=== PATIENT | female | born 1965 | race Caucasian/White ===

== ENCOUNTER → 2016-07-07 | Outpatient (CLI) | payer OTHER ==
--- NOTE | 2016-07-08 09:58 | REPMRS ---
Patient History The patient states she has not had a clinical breast exam in over a year. Patient is nulliparous. Family history of breast cancer in maternal aunt at age 60. Digital Mammo Screening Bilat: July 07, 2016 - Exam #: [id number] Bilateral CC and MLO view(s) were taken. Technologist: Nicolle Kinney, Technologist FINDINGS: There are scattered fibroglandular densities. There has been no change in the appearance of the mammogram from the prior studies. There is a mild amount of residual fibroglandular tissue which is fairly symmetric. There is no interval development of dominant mass, architectural distortion, or clustered microcalcification suggestive of malignancy. ASSESSMENT: BI-RADS/ACR category 1 mammogram. Negative. Recommendation Routine screening mammogram in 1 year (for women over age 40). This mammogram was interpreted with the aid of an FDA-approved computer-aided dectection system. Electronically Signed By: Rufus Rivas MD 07/08/16 0958
== END ==
LOC: M RAD 18:04
PROVIDERS: ATTEND Physician Assistant
DX: Z12.31 Encounter for screening mammogram for malignant neoplasm of breast (principal)

== ENCOUNTER → 2016-07-30 | Outpatient (CLI) | payer OTHER ==
--- NOTE | 2016-07-30 12:07 | REP ---
MRI BRAIN WITHOUT AND WITH CONTRAST: 07/30/2016. Comparison: 11/17/2006 Clinical history: Right-sided facial pain. Evaluate for demyelinating lesion. Trigeminal neuralgia. Technique: Sagittal FLAIR, coronal T1, axial T1, T2, fat suppressed T2, FLAIR, diffusion weighted images and ADC mapping sequences. After infusion of 16 ml's of ProHance, axial T1 with coronal and sagittal fat suppressed T1 sequences were provided. Findings: The lateral ventricles were symmetric and without dilatation or displacement from the midline. Basal ganglia symmetric and grossly normal. Third and fourth ventricles were unremarkable as well. There is a small focus of subcortical posterior frontal anterior parietal white matter which is hyperintense on T2 and FLAIR sequence. The periventricular, deep white matter and subcortical regions are otherwise without hyperintense signal foci in either hemisphere. Cortical stripe was preserved. There is no vascular territory infarct, hemorrhage, mass or mass effect. Rivas white junction differentiation was maintained. The diffusion weighted images and ADC mapping sequences show no evidence of acute ischemia. Brainstem shows no signal abnormality on the T2 sequence. There is one small focus of hyperintense signal on FLAIR images of the medulla to the left of midline which might be artifact. Contrast images show no evidence of enhancement of the brainstem nor of the subcortical white matter in the posterior right frontal anterior parietal region where a hyperintense T2 and FLAIR focus is seen. Cerebellum shows no atrophy or mass. No posterior fossa bleed. Vertebrobasilar arteries and [place] and vasculature at the base of the brain was grossly intact. After contrast administration, there was no abnormal meningeal enhancement, vascular lesion, gyriform enhancement, enhancing mass or other significant finding. Surrounding soft tissues of face and scalp were grossly intact as well. Mastoids symmetric and normal. Seventh/eighth cranial nerve complexes are unremarkable. The corpus callosum, optic chiasm and pituitary were unremarkable. No white matter tract abnormalities in the corpus callosum. There is no cerebellar tonsillar ectopia with an ample subarachnoid space about the craniocervical junction. Impression: 1. There is one small punctate hyperintense T2 and FLAIR focus in the subcortical white matter left posterior frontal anterior parietal region without evidence of enhancement. 2. There is a vague suggestion of hyperintense FLAIR signal in the left medulla just below the scar without visualization on T2 which may reflect an artifact. There is no enhancement there on the contrast study. 3. No vascular lesion, enhancing mass, abnormal meningeal enhancement, gyriform enhancement or vascular malformation noted. Nothing acute. Signed by Lazaro Jean MD 07/30/2016 02:17 P
== END ==
LOC: M RAD 09:42
PROVIDERS: ATTEND Physician Assistant
DX: G50.0 Trigeminal neuralgia (principal)
CPT/HCPCS: 70553; A9576

== ENCOUNTER → 2016-12-19 | Outpatient (REF) | payer OTHER ==
[2016-12-19 11:46] LABS: BASO # 0.1 10^3/uL (0.0-0.2); BASO % 1.1 % (0.0-1.0); EOS # 0.3 10^3/uL (0.0-0.50); EOS % 4.7 % (0.0-3.0); IMMATURE GRANULOCYTE % 0.2 % (0-0); LYMPH # 1.6 10^3/uL (1.5-4.5); LYMPH % 29.5 % (24.0-44.0); MEAN CORPUSCULAR HEMOGLOBIN 28.6 pg (27.0-33.0); MEAN CORPUSCULAR HGB CONC 35.1 g/dl (32.0-36.5); MEAN CORPUSCULAR VOLUME 81.6 fl (80.0-96.0); MONO # 0.4 10^3/uL (0.0-0.8); MONO % 6.9 % (0.0-5.0); NEUTROPHILS # 3.2 10^3/uL (1.8-7.7); NEUTROPHILS % 57.6 % (36.0-66.0); PLATELET COUNT, AUTOMATED 278 10^3/uL (150-450); RED CELL DISTRIBUTION WIDTH 12.7 % (11.5-14.5); WHITE BLOOD COUNT 5.5 10^3/uL (4.0-10.0)
[2016-12-19 11:48] LABS: ADD MANUAL DIFFER NO; DIFF SLIDE NUMBER 133
[2016-12-19 12:03] LABS: ALBUMIN 4.3 GM/DL (3.2-5.2); ALBUMIN/GLOBULIN RATIO 1.26 (1.00-1.93); ALKALINE PHOSPHATASE 68 U/L (45-117); ALT/SGPT 22 U/L (12-78); ANION GAP 7 MEQ/L (8-16); AST/SGOT 16 U/L (15-37); BILIRUBIN,TOTAL 0.6 MG/DL (0.2-1.0); BLOOD UREA NITROGEN 20 MG/DL (7-18); CALCIUM LEVEL 9.5 MG/DL (8.5-10.1); CARBON DIOXIDE LEVEL 35 MEQ/L (21-32); CHLORIDE LEVEL 96 MEQ/L (98-107); CREATININE FOR GFR 1.03 MG/DL (0.55-1.02); FREE T4 1.39 NG/DL (0.76-1.46); GLOMERULAR FILTRATION RATE > 60.0 (>58); GLUCOSE, FASTING 99 MG/DL (70-105); POTASSIUM SERUM 3.1 MEQ/L (3.5-5.1); SODIUM LEVEL 138 MEQ/L (136-145); TOTAL PROTEIN 7.7 GM/DL (6.4-8.2)
[2016-12-21 10:17] LABS: FOLATE 15.5 NG/ML; VITAMIN B12 LEVEL 719 PG/ML
[2016-12-23 00:20] LABS: Lyme Disease IgG/IgM Antibodie <0.91 ISR (0.00-0.90); Lyme Disease IgM Ab Quantitati <0.80 index (0.00-0.79)
== END ==
LOC: M LAB REF 11:18 → M LABWUC 11:18
PROVIDERS: ATTEND Physician Assistant
DX: R53.83 Other fatigue (principal)

== ENCOUNTER → 2017-01-06 | Outpatient (CLI) | payer OTHER ==
[2017-01-12 00:07] LABS: HSV TYPE I IgM AB <1:10 titer (<1:10); HSV TYPE II IgM ABY <1:10 titer (<1:10)
== END ==
LOC: M WUC 16:38
PROVIDERS: ATTEND Family Medicine
DX: H81.01 Meniere's disease, right ear (principal); E55.9 Vitamin D deficiency, unspecified

== ENCOUNTER 2019-05-25 10:55 | Day surgery (SDC) | payer OTHER ==
[~2019-05-25] VITALS: Ht 157.5 cm; Wt 80.3 kg
[~2019-05-25 10:55] MED LIST: IBUP-1114 PO; MULTCAP PO; NS 1,000 ML IV ONE; PROAAER10 INH; VITA30004 PO
[2019-05-25] MEDS ORDERED: LIDOCAINE 2% INJ 100 MG/5 ML SDV (FOR ANES.) As Ordered ONE (11:59)
[2019-05-25] MEDS ORDERED: fentaNYL 100 MCG/2 ML INJECTION (J3010) As Ordered ONE (12:16)
[2019-05-25] MEDS ORDERED: propofoL 500 MG/50 ML VIAL As Ordered ONE (12:16)
--- NOTE | 2019-05-25 13:19 | ROOR ---
Patient Name: Carleen Alexander Procedure Date: 05/25/2019 1:01 PM Date of : 1965 Age: 53 Room: [facility] Gender: Female Note Status: Finalized Procedure: Upper GI endoscopy Indications: Heartburn, Suspected esophageal reflux Providers: Sam Negrete Jr, MD Referring MD: Maryan ALONZO DO Requesting Provider: Medicines: Propofol per Anesthesia Complications: No immediate complications. Procedure: Pre-Anesthesia Assessment: - Prior to the procedure, a History and Physical was performed, and patient medications and allergies were reviewed. The patient is competent. The risks and benefits of the procedure and the sedation options and risks were discussed with the patient. All questions were answered and informed consent was obtained. Patient identification and proposed procedure were verified by the physician and the nurse in the pre-procedure area and in the procedure room. Mental Status Examination: alert and oriented. Airway Examination: normal oropharyngeal airway and neck mobility. Respiratory Examination: clear to auscultation. CV Examination: normal. ASA Grade Assessment: II - A patient with mild systemic disease. After reviewing the risks and benefits, the patient was deemed in satisfactory condition to undergo the procedure. The anesthesia plan was to use moderate sedation / analgesia (conscious sedation). Immediately prior to administration of medications, the patient was re-assessed for adequacy to receive sedatives. The heart rate, respiratory rate, oxygen saturations, blood pressure, adequacy of pulmonary ventilation, and response to care were monitored throughout the procedure. The physical status of the patient was re-assessed after the procedure. The Endoscope was introduced through the mouth, and advanced to the second part of duodenum. The upper GI endoscopy was accomplished without difficulty. The patient tolerated the procedure well. Findings: The upper third of the esophagus, middle third of the esophagus and lower third of the esophagus were normal. The cardia, gastric fundus and gastric body were normal. Localized moderate inflammation characterized by congestion (edema), erythema and linear erosions was found in the prepyloric region of the stomach. The duodenal bulb, first portion of the duodenum and second portion of the duodenum were normal. Impression: - Normal upper third of esophagus, middle third of esophagus and lower third of esophagus. - Normal cardia, gastric fundus and gastric body. - Gastritis. - Normal duodenal bulb, first portion of the duodenum and second portion of the duodenum. - No specimens collected. Recommendation: - Discharge patient to home (ambulatory). - Return to my office in 1 week. Sam Negrete MD Sam Negrete Jr, MD 05/25/2019 1:19:06 PM Electronically signed by Sam Negrete Jr, MD Number of Addenda: 0 Note Initiated On: 05/25/2019 1:01 PM Estimated Blood Loss: Estimated blood loss: none.
--- NOTE | 2019-05-25 13:32 | ROOR ---
Patient Name: Carleen Alexander Procedure Date: 05/25/2019 1:02 PM Date of : 1965 Age: 53 Room: [facility] Gender: Female Note Status: Finalized Procedure: Colonoscopy Indications: Screening for colorectal malignant neoplasm Providers: Sam Negrete Jr, MD Referring MD: Maryan ALONZO DO Requesting Provider: Medicines: Propofol per Anesthesia Complications: No immediate complications. Procedure: Pre-Anesthesia Assessment: - Prior to the procedure, a History and Physical was performed, and patient medications and allergies were reviewed. The patient is competent. The risks and benefits of the procedure and the sedation options and risks were discussed with the patient. All questions were answered and informed consent was obtained. Patient identification and proposed procedure were verified by the physician and the nurse in the pre-procedure area and in the procedure room. Mental Status Examination: alert and oriented. Airway Examination: normal oropharyngeal airway and neck mobility. Respiratory Examination: clear to auscultation. CV Examination: normal. ASA Grade Assessment: II - A patient with mild systemic disease. After reviewing the risks and benefits, the patient was deemed in satisfactory condition to undergo the procedure. The anesthesia plan was to use moderate sedation / analgesia (conscious sedation). Immediately prior to administration of medications, the patient was re-assessed for adequacy to receive sedatives. The heart rate, respiratory rate, oxygen saturations, blood pressure, adequacy of pulmonary ventilation, and response to care were monitored throughout the procedure. The physical status of the patient was re-assessed after the procedure. The Colonoscope was introduced through the anus and advanced to the cecum, identified by appendiceal orifice and ileocecal valve. The colonoscopy was performed without difficulty. The patient tolerated the procedure well. The quality of the bowel preparation was adequate. Findings: The rectum, recto-sigmoid colon, sigmoid colon, descending colon, transverse colon, ascending colon, cecum, appendiceal orifice and ileocecal valve appeared normal. Non-bleeding external and internal hemorrhoids were found during retroflexion, during perianal exam and during endoscopy. The hemorrhoids were moderate and Grade II (internal hemorrhoids that prolapse but reduce spontaneously). Impression: - The rectum, recto-sigmoid colon, sigmoid colon, descending colon, transverse colon, ascending colon, cecum, appendiceal orifice and ileocecal valve are normal. - Non-bleeding external and internal hemorrhoids. - No specimens collected. Recommendation: - Discharge patient to home (ambulatory). - Repeat colonoscopy in 10 years for screening purposes. Sam Negrete MD Sam Negrete Jr, MD 05/25/2019 1:32:05 PM Electronically signed by Sam Negrete Jr, MD Number of Addenda: 0 Note Initiated On: 05/25/2019 1:02 PM Estimated Blood Loss: Estimated blood loss: none.
[2019-05-25 14:07] VITALS: BP 113/62
== END 2019-05-25 14:09 | disposition home or self-care (01) ==
LOC: M OPP 10:55
PROVIDERS: ATTEND Surgery
DX: Z12.11 Encounter for screening for malignant neoplasm of colon (principal); K64.1 Second degree hemorrhoids; K29.70 Gastritis, unspecified, without bleeding; K21.9 Gastro-esophageal reflux disease without esophagitis; R12 Heartburn; Z79.899 Other long term (current) drug therapy
CPT/HCPCS: 43239; 45378; 88305; J3010

== ENCOUNTER → 2019-07-17 | Outpatient (CLI) | payer OTHER ==
[~2019-07-17] MED LIST changes: -NS 1,000 ML IV ONE
[2019-07-17 19:26] LABS: BASO % 0.6 % (0.0-1.0); EOS # 0.1 10^3/uL (0.0-0.5); EOS % 1.3 % (0.0-3.0); HEMATOCRIT 38.4 % (36.0-47.0); HEMOGLOBIN 12.6 g/dl (12.0-15.5); LYMPH # 1.8 10^3/uL (1.5-5.0); LYMPH % 32.9 % (24.0-44.0); MEAN CORPUSCULAR HEMOGLOBIN 28.8 pg (27.0-33.0); MEAN CORPUSCULAR HGB CONC 32.8 g/dl (32.0-36.5); MEAN CORPUSCULAR VOLUME 87.9 fl (80.0-96.0); MONO # 0.3 10^3/uL (0.0-0.8); MONO % 6.3 % (0.0-5.0); NEUTROPHILS # 3.2 10^3/uL (1.5-8.5); NEUTROPHILS % 58.7 % (36.0-66.0); PLATELET COUNT, AUTOMATED 223 10^3/uL (150-450); RED BLOOD COUNT 4.37 10^6/uL (4.00-5.40); WHITE BLOOD COUNT 5.4 10^3/uL (4.0-10.0)
[2019-07-17 19:46] LABS: ALBUMIN 4.4 GM/DL (3.2-5.2); ALT/SGPT 64 U/L (12-78); BILIRUBIN,TOTAL 0.5 MG/DL (0.2-1.0); BLOOD UREA NITROGEN 13 MG/DL (7-18); CALCIUM LEVEL 9.3 MG/DL (8.5-10.1); CARBON DIOXIDE LEVEL 29 MEQ/L (21-32); CHLORIDE LEVEL 105 MEQ/L (98-107); CHOLESTEROL LEVEL 235 MG/DL (<200); CHOLESTEROL RISK RATIO 4.895 (<5); CREATININE FOR GFR 0.67 MG/DL (0.55-1.30); GLOMERULAR FILTRATION RATE > 60.0 (>51); GLUCOSE, FASTING 82 MG/DL (70-100); HDL CHOLESTEROL 48 MG/DL (>40); LDL CHOLESTEROL 157 MG/DL (<100); NON-HDL-C 187 MG/DL; NT-PRO BNP 45 PG/ML (<125); SODIUM LEVEL 142 MEQ/L (136-145); TOTAL PROTEIN 7.5 GM/DL (6.4-8.2); TRIGLYCERIDES LEVEL 152 MG/DL (<150); TROPONIN I < 0.02 NG/ML (< 0.10)
== END ==
LOC: M WUC 14:34
PROVIDERS: ATTEND Physician Assistant
DX: R07.9 Chest pain, unspecified (principal)

== ENCOUNTER → 2020-01-04 | Outpatient (CLI) | payer OTHER ==
[2020-01-04 12:32] LABS: ALT/SGPT 16 U/L (12-78); BILIRUBIN,TOTAL 0.8 MG/DL (0.2-1.0); BLOOD UREA NITROGEN 17 MG/DL (7-18); CALCIUM LEVEL 9.1 MG/DL (8.5-10.1); CARBON DIOXIDE LEVEL 28 MEQ/L (21-32); CHLORIDE LEVEL 108 MEQ/L (98-107); CHOLESTEROL LEVEL 219 MG/DL (<200); CHOLESTEROL RISK RATIO 4.055 (<5); CREATININE FOR GFR 0.75 MG/DL (0.55-1.30); GLOMERULAR FILTRATION RATE > 60.0 (>51); GLUCOSE, FASTING 78 MG/DL (70-100); HDL CHOLESTEROL 54 MG/DL (>40); LDL CHOLESTEROL 148 MG/DL (<100); NON-HDL-C 165 MG/DL; POTASSIUM SERUM 4.3 MEQ/L (3.5-5.1); SODIUM LEVEL 142 MEQ/L (136-145); TOTAL PROTEIN 6.9 GM/DL (6.4-8.2); TRIGLYCERIDES LEVEL 86 MG/DL (<150)
== END ==
LOC: M WUC 09:39
PROVIDERS: ATTEND Physician Assistant
DX: E78.2 Mixed hyperlipidemia (principal)

== ENCOUNTER → 2021-01-15 | Outpatient (CLI) | payer OTHER ==
[2021-01-15 13:26] LABS: BASO # 0.1 10^3/uL (0.0-0.2); BASO % 0.6 % (0.0-1.0); EOS # 0.3 10^3/uL (0.0-0.5); EOS % 3.5 % (0.0-3.0); HEMATOCRIT 42.2 % (36.0-47.0); HEMOGLOBIN 13.4 g/dl (12.0-15.5); LYMPH # 2.1 10^3/uL (1.5-5.0); LYMPH % 27.4 % (24.0-44.0); MEAN CORPUSCULAR HEMOGLOBIN 27.9 pg (27.0-33.0); MEAN CORPUSCULAR HGB CONC 31.8 g/dl (32.0-36.5); MEAN CORPUSCULAR VOLUME 87.9 fl (80.0-96.0); MONO # 0.4 10^3/uL (0.0-0.8); NEUTROPHILS # 4.9 10^3/uL (1.5-8.5); NEUTROPHILS % 63.2 % (36.0-66.0); PLATELET COUNT, AUTOMATED 252 10^3/uL (150-450); WHITE BLOOD COUNT 7.8 10^3/uL (4.0-10.0)
--- NOTE | 2021-01-15 13:37 | REP ---
INDICATION: ENCOUNTER FOR SCREENING FOR DIABETES MELLITUS. COMPARISON: None. TECHNIQUE: AP and lateral views FINDINGS: There is anterior lipping and anterior disc space narrowing at every level. Vertebral body height and alignment is within normal limits. The pedicles are intact bilaterally. IMPRESSION: No acute osseous abnormality is identified. <Electronically signed by Vega Davalos > 01/15/21 [id number]
[2021-01-15 14:08] LABS: ALBUMIN 4.2 GM/DL (3.2-5.2); ALT/SGPT 21 U/L (12-78); BILIRUBIN,DIRECT 0.1 MG/DL (0.0-0.2); BILIRUBIN,TOTAL 0.6 MG/DL (0.2-1.0); BLOOD UREA NITROGEN 18 MG/DL (7-18); CALCIUM LEVEL 9.6 MG/DL (8.5-10.1); CARBON DIOXIDE LEVEL 32 MEQ/L (21-32); CHLORIDE LEVEL 106 MEQ/L (98-107); CHOLESTEROL LEVEL 241 MG/DL (<200); CHOLESTEROL RISK RATIO 4.462 (<5); CREATININE FOR GFR 0.68 MG/DL (0.55-1.30); FREE T4 1.15 NG/DL (0.76-1.46); GLOMERULAR FILTRATION RATE > 60.0 (>51); GLUCOSE, FASTING 93 MG/DL (70-100); HDL CHOLESTEROL 54 MG/DL (>40); LDL CHOLESTEROL 163 MG/DL (<100); NON-HDL-C 187 MG/DL; POTASSIUM SERUM 4.3 MEQ/L (3.5-5.1); SODIUM LEVEL 141 MEQ/L (136-145); TOTAL PROTEIN 7.6 GM/DL (6.4-8.2); TRIGLYCERIDES LEVEL 119 MG/DL (<150)
[2021-01-15 14:27] LABS: HEMOGLOBIN A1c 5.1 %
== END ==
LOC: M PLAIMG 10:46
PROVIDERS: ATTEND Physician Assistant Medical
DX: Z13.1 Encounter for screening for diabetes mellitus (principal)

== ENCOUNTER → 2021-01-20 | Outpatient (CLI) | payer OTHER ==
--- NOTE | 2021-01-20 08:34 | REP ---
INDICATION: RUQ ABDOMINAL PAIN. COMPARISON: None. TECHNIQUE: Grayscale sonography of the right upper quadrant. FINDINGS: The liver is homogeneous in echotexture and without focal hepatic mass, intrahepatic biliary dilatation nor perihepatic ascites. It is not enlarged in its contour is smooth. Gallbladder shows normal wall thickness and no stone, sludge or pericholecystic fluid. Common duct is 3.3 mm and without a stone. Pancreas was unremarkable. The right kidney is 10.3 x 5.3 x 4 cm without hydronephrosis or stone visible. No upper abdominal free fluid. IMPRESSION: 1. Negative right upper quadrant ultrasound. <Electronically signed by Lazaro Jean > 01/20/21 [id number]
== END ==
LOC: M RAD 06:41
PROVIDERS: ATTEND Physician Assistant Medical
DX: R10.11 Right upper quadrant pain (principal)

== ENCOUNTER → 2021-05-19 | Outpatient (CLI) | payer OTHER ==
[2021-05-19 20:23] LABS: FREE THYROXINE INDEX 3.6 % (1.3-4.8); RHEUMATOID FACTOR QUANT < 10.0 IU/ML (<15.0); T UPTAKE 36 % (30-39); TOTAL PROTEIN 7.6 GM/DL (6.4-8.2)
[2021-05-20 13:27] LABS: VITAMIN B12 LEVEL 370 PG/ML
[2021-05-20 13:28] LABS: FOLATE 20.5 NG/ML
== END ==
LOC: M WUC 15:34
PROVIDERS: ATTEND Psychiatry & Neurology Neurology
DX: G50.0 Trigeminal neuralgia (principal); M54.2 Cervicalgia; M54.59 Other low back pain

== ENCOUNTER → 2021-10-10 | Outpatient (CLI) | payer OTHER | LOC: M RAD 12:39 | PROVIDERS: ATTEND Physician Assistant | DX: G45.9 Transient cerebral ischemic attack, unspecified (principal) ==

== ENCOUNTER → 2022-03-02 | Outpatient (CLI) | payer OTHER ==
[2022-03-02 18:45] LABS: ALBUMIN 4.3 G/DL (3.2-5.2); ALKALINE PHOSPHATASE 70 U/L (46-116); ALT/SGPT 15 U/L (7.0-40); AST/SGOT 21 U/L (<34); BILIRUBIN,TOTAL 0.7 MG/DL (0.3-1.2); BLOOD UREA NITROGEN 12 MG/DL (9-23); CALCIUM LEVEL 9.1 MG/DL (8.5-10.1); CARBON DIOXIDE LEVEL 29 MMOL/L (20-31); CHLORIDE LEVEL 105 MMOL/L (98-107); CHOLESTEROL LEVEL 206 MG/DL (<200); CHOLESTEROL RISK RATIO 3.84 (<5); CREATININE FOR GFR 0.69 MG/DL (0.55-1.30); GLOMERULAR FILTRATION RATE > 60.0 (>51); GLUCOSE, FASTING 79 MG/DL (60-100); HDL CHOLESTEROL 53.6 MG/DL (>40); LDL CHOLESTEROL 135.4 MG/DL (<100); NON-HDL-C 152 MG/DL; POTASSIUM SERUM 3.7 MMOL/L (3.5-5.1); SODIUM LEVEL 142 MMOL/L (136-145); TOTAL PROTEIN 7.4 G/DL (5.7-8.2); TRIGLYCERIDES LEVEL 85 MG/DL (<150)
== END ==
LOC: M LAB 17:49
PROVIDERS: ATTEND Physician Assistant
DX: E78.2 Mixed hyperlipidemia (principal)

== ENCOUNTER → 2022-11-27 | Outpatient (CLI) | payer OTHER ==
[~2022-11-27] MED LIST changes: +GLUCAGON INJ 1MG VIAL As Ordered ONE; +ISOVUE-370 76% 100ML VIAL As Ordered ONE; +NEULUMEX 0.1% SUSPENSION 450ML BOTTLE (FORMERLY VOLUMEN) As Ordered ONE
== END ==
LOC: M RAD 14:55
PROVIDERS: ATTEND Physician Assistant Medical
DX: K59.00 Constipation, unspecified (principal)
CPT/HCPCS: 74177; J1610; Q9967

== ENCOUNTER → 2023-05-25 | Outpatient (CLI) | payer BC, OTHER ==
[~2023-05-25] MED LIST changes: -GLUCAGON INJ 1MG VIAL As Ordered ONE; -ISOVUE-370 76% 100ML VIAL As Ordered ONE; -NEULUMEX 0.1% SUSPENSION 450ML BOTTLE (FORMERLY VOLUMEN) As Ordered ONE
[2023-05-25 18:34] LABS: BASO % 0.6 % (0.0-1.0); EOS # 0.1 10^3/uL (0.0-0.5); EOS % 1.8 % (0.0-3.0); HEMATOCRIT 39.8 % (36.0-47.0); HEMOGLOBIN 13.2 g/dl (12.0-15.5); LYMPH # 2.2 10^3/uL (1.5-5.0); LYMPH % 32.5 % (24.0-44.0); MEAN CORPUSCULAR HEMOGLOBIN 28.8 pg (27.0-33.0); MEAN CORPUSCULAR HGB CONC 33.2 g/dl (32.0-36.5); MEAN CORPUSCULAR VOLUME 86.9 fl (80.0-96.0); MONO # 0.4 10^3/uL (0.0-0.8); NEUTROPHILS % 58.8 % (36.0-66.0); PLATELET COUNT, AUTOMATED 248 10^3/uL (150-450); RED BLOOD COUNT 4.58 10^6/uL (4.00-5.40); WHITE BLOOD COUNT 6.8 10^3/uL (4.0-10.0)
[2023-05-25 19:11] LABS: ALBUMIN 4.5 G/DL (3.2-5.2); ALKALINE PHOSPHATASE 62 U/L (46-116); ALT/SGPT 19 U/L (7.0-40); AST/SGOT 16 U/L (<34); BILIRUBIN,TOTAL 0.6 MG/DL (0.3-1.2); BLOOD UREA NITROGEN 17 MG/DL (9-23); CARBON DIOXIDE LEVEL 28 MMOL/L (20-31); CHLORIDE LEVEL 105 MMOL/L (98-107); CREATININE FOR GFR 0.63 MG/DL (0.55-1.30); GLOMERULAR FILTRATION RATE > 60.0 (>51); GLUCOSE, FASTING 84 MG/DL (60-100); POTASSIUM SERUM 4.1 MMOL/L (3.5-5.1); SODIUM LEVEL 139 MMOL/L (136-145); TOTAL PROTEIN 7.4 G/DL (5.7-8.2)
[2023-05-25 19:12] LABS: FREE T4 1.23 NG/DL (0.89-1.76)
[2023-05-25 19:13] LABS: CARCINOEMBRYONIC ANTIGEN < 2.0 NG/ML (<2.5); THYROID STIMULATING HORMONE 1.677 uIU/ML (0.55-4.78)
== END ==
LOC: M LAB 17:59
PROVIDERS: ATTEND Physician Assistant Medical
DX: R63.4 Abnormal weight loss (principal)

== ENCOUNTER → 2023-07-05 | Outpatient (CLI) | payer OTHER, BC ==
[2023-07-05 13:04] LABS: C REACTIVE PROTEIN QUANTITATIV < 0.40 MG/DL (<1.0)
[2023-07-05 13:05] LABS: CHOLESTEROL LEVEL 193 MG/DL (<200); CHOLESTEROL RISK RATIO 3.94 (<5); HDL CHOLESTEROL 48.9 MG/DL (>40); LDL CHOLESTEROL 122.7 MG/DL (<100); NON-HDL-C 144.1 MG/DL; TRIGLYCERIDES LEVEL 107 MG/DL (<150)
== END ==
LOC: M PLALAB 11:05
PROVIDERS: ATTEND Physician Assistant Medical
DX: R63.4 Abnormal weight loss (principal); M54.2 Cervicalgia

== ENCOUNTER → 2023-08-13 | Outpatient (CLI) | payer OTHER, BC | LOC: M PLAIMG 12:51 | PROVIDERS: ATTEND Physician Assistant Medical | DX: M54.2 Cervicalgia (principal) ==

== ENCOUNTER → 2023-10-01 | Outpatient (CLI) | payer OTHER, BC | LOC: M RAD 16:08 | PROVIDERS: ATTEND Physician Assistant Medical | DX: G43.109 Migraine with aura, not intractable, without status migrainosus (principal); R90.82 White matter disease, unspecified ==

== ENCOUNTER → 2025-01-15 | Outpatient (CLI) | payer BC ==
[2025-01-15 17:18] LABS: BASO # 0.1 10^3/uL (0.0-0.2); BASO % 1.0 % (0.0-1.0); EOS # 0.1 10^3/uL (0.0-0.5); EOS % 2.4 % (0.0-3.0); LYMPH # 2.2 10^3/uL (1.5-5.0); LYMPH % 37.1 % (24.0-44.0); MONO # 0.3 10^3/uL (0.0-0.8); MONO % 5.9 % (2.0-8.0); NEUTROPHILS # 3.1 10^3/uL (1.5-8.5); NEUTROPHILS % 53.4 % (36.0-66.0); PLATELET COUNT, AUTOMATED 219 10^3/uL (150-450)
[2025-01-15 17:41] LABS: ALT/SGPT 19 U/L (7.0-40); AST/SGOT 18 U/L (<34); CALCIUM LEVEL 9.2 MG/DL (8.5-10.1); CARBON DIOXIDE LEVEL 29 MMOL/L (20-31); CHLORIDE LEVEL 105 MMOL/L (98-107); CHOLESTEROL LEVEL 214 MG/DL (<200); CHOLESTEROL RISK RATIO 4.32 (<5); CREATININE FOR GFR 0.69 MG/DL (0.55-1.30); GLOMERULAR FILTRATION RATE > 90.0 (>51); LDL CHOLESTEROL 129.5 MG/DL (<100); MAGNESIUM LEVEL 2.1 MG/DL (1.8-2.4); NON-HDL-C 164.5 MG/DL; POTASSIUM SERUM 4.1 MMOL/L (3.5-5.1); PTH INTACT 74.6 PG/ML (18.5-88.0); SODIUM LEVEL 142 MMOL/L (136-145); TRIGLYCERIDES LEVEL 175 MG/DL (<150)
[2025-01-15 17:43] LABS: TOTAL 25(OH) VITAMIN D 26.9 NG/ML (20.0-100.0)
== END ==
LOC: M LAB 16:30
PROVIDERS: ATTEND Physician Assistant Medical
DX: J30.9 Allergic rhinitis, unspecified (principal); E66.9 Obesity, unspecified; E55.9 Vitamin D deficiency, unspecified; Z13.220 Encounter for screening for lipoid disorders; G43.909 Migraine, unspecified, not intractable, without status migrainosus